=== PATIENT | female | born 1955 | race Caucasian/White ===

== ENCOUNTER → 2016-07-01 | Day surgery (SDC) | payer OTHER ==
[~2016-07-01] VITALS: Ht 177.8 cm; Wt 69.1 kg
[~2016-07-01] MED LIST: COZA100T PO; CYCLOPENTOLATE HCL 1% OPHT SOLN 2 ML BTL ONE; FLURBIPROFEN 0.03% OPHT SOLN 2.5 ML BTL ONE; LEVO25TA4 PO; LIDOCAINE HCL 1% 30 ML VIAL ONE; LIDOCAINE HCL 2% JELLY 5 ML SYRINGE ONE; MIDAZOLAM HCL 2 MG/2 ML VIAL ONE; PHENYLEPHRINE HCL 10% OPTH SOLN 5 ML BTL ONE; PROPARACAINE HCL 0.5% OPHT SOLN 15 ML BTL ONE; SODIUM CHLORID 0.9% 500 ML INJ 500 ML ONE; TROPICAMIDE 1% OPHT SOLN 15 ML BTL ONE
[2016-07-01 07:23] VITALS: BP 135/75; PULSE 69; RESP 18; TEMP 98; O2SAT 98
[2016-07-01] MEDS: TOBRAMYCIN/DEXAMETHASONE OPTH OINT 3.5 GM TUBE ONE ×2 (09:01→09:15)
[2016-07-01 09:50] VITALS: BP 158/67; PULSE 67; RESP 16; TEMP 97.6; O2SAT 100
--- NOTE | 2016-07-02 09:30 | MP ---
cc: MANUEL COLLINS M.D. COUNT INCLUDES THE [facility] #[id number] DATE OF SURGERY 07/01/2016 PREOPERATIVE DIAGNOSIS Visually significant cataract left eye. POSTOPERATIVE DIAGNOSIS Visually significant cataract left eye. OPERATION Phacoemulsification with posterior chamber lens implantation, left eye. SURGEON Manuel Collins MD ANESTHESIA Topical with MAC COMPLICATIONS None PROCEDURE After informed consent was obtained, the patient was brought into the operative suite and placed on appropriate monitors by the Anesthesia Service. The patient had been given dilating drops and topical lidocaine gel in the holding area. The patient's operative eye was then prepped and draped in the usual sterile fashion. A wire lid speculum was placed. Further 2% lidocaine was then dropped on the cornea prior to beginning the procedure. A paracentesis incision was made in the peripheral cornea with a 1 mm patricia keratome. The anterior chamber was filled with viscoelastic. The anterior chamber was then entered through a stepped, clear corneal incision using a sharp 3 mm patricia keratome. A circular tear capsulorrhexis was then made with a bent needle cystitome. Following hydrodissection of the lens nucleus with balance saline, phacoemulsification of the nucleus was performed using a modified chopping technique. The remaining cortex was removed with irrigation/aspiration. The prior two procedures were both performed using the handpieces of the [employer] phaco unit. The capsular bag was then filled with viscoelastic. The intraocular lens was then injected into the capsular bag and positioned. The type of intraocular lens and its power can be found elsewhere in this chart. The remaining viscoelastic was then removed from the anterior chamber with the IA handpiece. The anterior chamber was reformed with balanced saline. The wound was then closed securely with stromal hydration. It was found to be watertight to an intraocular pressure of at least 30 mmHg by palpation. A small amount of balanced salt solution was then removed through the paracentesis site and the intraocular pressure at the end of the case was approximately 20 by palpation. All drapes were then removed. TobraDex ointment was then placed in the eye, which was closed beneath a semi-pressure patch dressing. The patient tolerated this procedure well and left the operating room awake and alert. The patient is to follow-up in my office in the morning. MD CHEIKH Alarcon/DYAN /10:23 AM /9:19 AM
== END | disposition home or self-care (01) ==
LOC: PHSDC 06:20
PROVIDERS: ATTEND Optometrist Occupational Vision
DX: H26.9 Unspecified cataract (principal)
CPT/HCPCS: 00142; 66984; J2250; J7040; V2632

== ENCOUNTER → 2016-08-16 | Day surgery (SDC) | payer OTHER ==
[~2016-08-16] VITALS: Ht 177.8 cm; Wt 103.1 kg
[2016-08-16 08:10] VITALS: BP 170/98; PULSE 67; RESP 20; TEMP 98.2; O2SAT 98
[2016-08-16] MEDS: TOBRAMYCIN/DEXAMETHASONE OPTH OINT 3.5 GM TUBE ONE ×2 (09:38→09:45)
[2016-08-16 10:15] VITALS: BP 148/7; PULSE 66; RESP 16; TEMP 98; O2SAT 98
--- NOTE | 2016-08-16 10:55 | MP ---
cc: MANUEL COLLINS M.D. [facility] [id number] DATE OF SURGERY: 08/16/2016 PREOPERATIVE DIAGNOSIS Visually significant cataract, right eye. POSTOPERATIVE DIAGNOSIS Visually significant cataract, right eye. OPERATION Phacoemulsification with posterior chamber lens implantation, right eye. SURGEON Manuel Collins MD ANESTHESIA Topical with MAC. COMPLICATIONS None. PROCEDURE After informed consent was obtained, the patient was brought into the operative suite and placed on appropriate monitors by the Anesthesia Service. The patient had been given dilating drops and topical lidocaine gel in the holding area. The patient's operative eye was then prepped and draped in the usual sterile fashion. A wire lid speculum was placed. Further 2% lidocaine was then dropped on the cornea prior to beginning the procedure. A paracentesis incision was made in the peripheral cornea with a 1 mm patricia keratome. The anterior chamber was filled with viscoelastic. The anterior chamber was then entered through a stepped, clear corneal incision using a sharp 3 mm patricia keratome. A circular tear capsulorrhexis was then made with a bent needle cystitome. Following hydrodissection of the lens nucleus with balance saline, phacoemulsification of the nucleus was performed using a modified chopping technique. The remaining cortex was removed with irrigation/aspiration. The prior two procedures were both performed using the handpieces of the [employer] phaco unit. The capsular bag was then filled with viscoelastic. The intraocular lens was then injected into the capsular bag and positioned. The type of intraocular lens and its power can be found elsewhere in this chart. The remaining viscoelastic was then removed from the anterior chamber with the IA handpiece. The anterior chamber was reformed with balanced saline. The wound was then closed securely with stromal hydration. It was found to be watertight to an intraocular pressure of at least 30 mmHg by palpation. A small amount of balanced salt solution was then removed through the paracentesis site and the intraocular pressure at the end of the case was approximately 20 by palpation. All drapes were then removed. TobraDex ointment was then placed in the eye, which was closed beneath a semi-pressure patch dressing. The patient tolerated this procedure well and left the operating room awake and alert. The patient is to follow-up in my office in the morning. MD CRISTHIAN Alarcon /10:28 AM /10:54 AM
== END | disposition home or self-care (01) ==
LOC: PHSDC 06:19
PROVIDERS: ATTEND Optometrist Occupational Vision
DX: H25.811 Combined forms of age-related cataract, right eye (principal)
CPT/HCPCS: 00142; 66984; J2250; J7040; V2632